=== PATIENT | male | born 1990 | race African-American/Black ===

== ENCOUNTER 2017-12-23 21:36 | Inpatient (IN) | payer SELFPAY ==
--- NOTE | 2017-12-23 23:09 | RAD ---
RIGHT KNEE 4 VIEWS: Date: 12/23/17 HISTORY: Injury to right knee with pain. FINDINGS: Mild to moderate degenerative changes are noted. Spurring is seen from the tibial condyles and femora l condyles. Mild spurring from the patella. No evidence of joint effusion. IMPRESSION: Mild to moderate degenerative changes of the right knee. POS: [facility]
--- NOTE | 2017-12-23 23:10 | RAD ---
LEFT KNEE 4 VIEWS: Date: 12/23/17 HISTORY: Injury with pain. FINDINGS: Mild degenerative changes. Joint spaces are preserved. No joint effusion. No fracture. IMPRESSION: Mild degenerative changes left knee. POS: [facility]
[2017-12-23] MEDS ORDERED: Acetaminophen 325 MG TAB PO PRN (23:47)
--- NOTE | 2017-12-23 23:48 | CT ---
CT CERVICAL SPINE: Date: 12/23/17 Multiple axial tomograms obtained through the cervical spine with multiplanar reconstruction. HISTORY: Mental status change. Fell and hit head while rollerskating. Neck injury. FINDINGS: Cervical vertebra maintain normal h eight and alignment. No evidence of fracture. IMPRESSION: No evidence of cervical spine fracture. POS: [facility]
[2017-12-24] MEDS ORDERED: Sodium Chloride 0.45% 1,000 ML IV SCH (01:45)
[2017-12-24 02:55] VITALS: BMI 32.3
[2017-12-24 05:19] LABS: #Basophils 0.1 thou/uL (0.0-0.2); #Eosinphils 0.4 thou/uL (0.0-0.7); #Lymphocytes 2.4 thou/uL (1.20-3.40); #Monocytes 0.8 thou/uL (0.11-0.59); #Neutrophils 4.8 thou/uL (1.40-6.50); %Basophils 0.6 % (0.0-1.0); %Eosinophils 4.6 % (0.0-10.0); %Lymphocytes 28.8 % (21.0-51.0); %Monocytes 8.9 % (0.0-10.0); Mean Corpuscular HGB CONC 31.7 g/dL (32.0-36.0); Mean Corpuscular Hemoglobin 29.3 pg (27.0-31.0); Mean Corpuscular Volume 92.6 fl (80.0-94.0); Mean Platelet Volume 7.9 fL (7.4-10.4); Platelet Count 193 thou/uL (130-400); Red Blood Cell (RBC) Count 5.11 mill/uL (4.70-6.10); White Blood Cell (WBC) Count 8.4 thou/uL (4.8-10.8)
[2017-12-24 05:24] LABS: ALT (SGPT) 28 U/L (8-55); AST (SGOT) 22 U/L (5-34); Alkaline Phosphatase 78 U/L (40-150); Anion Gap 11 mmol/L (10-20); BUN (Urea Nitrogen) 8 mg/dL (8.9-20.6); Bilirubin, Total 1.1 mg/dL (0.2-1.2); Calc. Creatinine Clearance 155 mL/min (70-130); Calcium 9.3 mg/dL (7.8-10.44); Carbon Dioxide 25 mmol/L (22-29); Chloride 108 mmol/L (98-107); Estimated GFR-MDRD 89; Globulin 2.9 g/dL (2.4-3.5); Glucose 106 mg/dL (70-105); Potassium 3.6 mmol/L (3.5-5.1); Protein, Total 6.9 g/dL (6.0-8.3); Sodium 140 mmol/L (136-145)
--- NOTE | 2017-12-24 05:33 | HP ---
PRIMARY CARE PHYSICIAN: None. PRESENTING COMPLAINT: Altered mentation. HISTORY OF PRESENT ILLNESS: This is a 27-year-old man with no significant medical history, who prese nted to the emergency room after a fall. The patient has stated to have been skating during which he fell and hit his head. He admits to using PCP and marijuana before going skating. He was noted to have altered mentation after he was brought to the emergency room for evaluation. He had a CT of his cervical spine done, which showed no evidence of cervical spine fracture. Knee x-rays were also unr emarkable. It was found to have a dental fracture and urine toxicology was positive for PCP and jai umang. Due to concern for his altered mental state, he was then admitted to further management. EKG showed sinus bradycardia. Vital signs were stable. PAST MEDICAL HISTORY: None. PAST SURGICAL HISTORY: Left great toe surgery, tonsillectomy. FAMILY HISTORY: Reviewed and noncontributory. SOCIAL HISTORY: Drinks alcohol socially and admits to recreational drug use, also smokes cigarettes daily. ALLERGIES: None. REVIEW OF SYSTEMS: Twelve point review of systems negative except for as stated above in HPI. PHYSICAL EXAMINATION: VITAL SIGNS: Stable. Blood pressure 141/90, temperature 98.6, pulse 62, respiratory rate 20, oxygen saturation 98% on room air. GENERAL: Not in acute distress, sitting comfortably in bed. HEENT: Positive for tooth fracture. Neck is supple. Normocephalic, atraumatic. Not pale, anicteri c. Moist mucosa. RESPIRATORY: Vesicular breath sounds bilaterally. No wheezes or rales. CARDIOVASCULAR: S1 and S2 only. No murmurs, rubs, or gallops. ABDOMEN: Soft, nontender, nondistended. MUSCULOSKELETAL: Moving all extremities spontaneously. SKIN: Warm, dry, well-perfused. NEUROLOGIC: Alert and oriented x3. No focal deficits. Tone normal. Strength 5/5 in all extremitie s. PSYCHIATRIC: Normal mood and affect. LABORATORY: Unremarkable. Urine toxicology as detailed in HPI. IMAGING: As stated in HPI. ASSESSMENT AND PLAN: 1. Acute encephalopathy. This is likely drug induced. He will be monitored on tele and likely disc harge in the morning. It is very unlikely he has had a CVA given his age and lack of risk factors. Also, he is currently alert and well oriented to time, place and person. 2. He will be counseled on cessation and his pain will be controlled while he is in the hospital. CODE STATUS: FULL CODE. Prophylaxis, the patient is ambulatory and young, and so does not need deep venous thrombosis prophylaxis.
[2017-12-24] MEDS ORDERED: Cephalexin 250 MG CAP PO SCH (09:00)
[2017-12-24] MEDS ORDERED: Ibuprofen 800 MG TAB PO SCH (09:00)
--- NOTE | 2017-12-24 09:01 | DIS ---
TRANSFER OF CARE NOTE PRIMARY CARE PHYSICIAN: No primary care physician. DATE OF ADMISSION: 12/23/2017 DATE OF DISCHARGE: 12/24/2017 DISCHARGE DISPOSITION: Home. FINAL DIAGNOSES: 1. Encephalopathy. 2. Polysubstance abuse with PCP and THC. 3. Fall. DISCHARGE MEDCATIONS: None. FOLLOWUP: See primary care provider p.r.n. CODE STATUS: Full. PENDING AT THE TIME OF DISCHARGE: Nothing. HOSPITAL COURSE: The patient fell while skating. He was taken to the [place] [facility] where he admitted to using PCP and marijuana. Because he was confused he was transferred to [facility] in [place]. [facility] CT of his brain showed no skull fracture or internal bleeding. CT of his neck revealed no fracture , etc. He did have some mouth pain. I examined him this morning, he is alert, oriented x3, cooperat sherley, normal neurological exam. He is being discharged. He has been cautioned about using PCP. FOLLOWUP: He has been told he needs a primary care provider for followup.
[2017-12-24 10:22] VITALS: BP 171/90; TEMP 98.4
== END 2017-12-24 10:12 | disposition home or self-care (01) | DRG 93 ==
LOC: ERS 21:36 → 2NO 12-24 01:39
PROVIDERS: ADMIT Internal Medicine; ATTEND Internal Medicine
DX: G92 Toxic encephalopathy (principal); F12.10 Cannabis abuse, uncomplicated; F16.10 Hallucinogen abuse, uncomplicated
CPT/HCPCS: 36415; 36416; 72125; 80053; 85025; 93005; A4216

== ENCOUNTER 2021-08-13 08:19 | Emergency (ER) | payer BC ==
[2021-08-13] MEDS ORDERED: predniSONE 20 MG TAB ONE (08:56)
== END 2021-08-13 09:45 | disposition home or self-care (01) ==
LOC: ERS 08:19
DX: T54.91XA Toxic effect of unspecified corrosive substance, accidental (unintentional), initial encounter (principal); L25.3 Unspecified contact dermatitis due to other chemical products; M19.90 Unspecified osteoarthritis, unspecified site; J45.909 Unspecified asthma, uncomplicated; F17.210 Nicotine dependence, cigarettes, uncomplicated
CPT/HCPCS: 93005; 99282; J7512